=== PATIENT | female | born 1930 | race African-American/Black ===

== ENCOUNTER → 2016-07-24 | Outpatient (CLI) | payer OTHER ==
[~2016-07-24] MED LIST: ASCORBIC ACID PO; BAYER ASPIRIN325 M1 PO; BIDIL PO; MICRO-K10 MEQ PO; NORVASC10 MG PO; SPIRONOLACTONE50 MG PO; SYNTHROID75 MCG PO; ZESTRIL40 MG PO; [UNRECOGNIZED DRUG - OTHER]
[2016-07-24 18:06] LABS: HEMATOCRIT 30.2 % (35.0-45.0); HEMOGLOBIN 9.7 gm/dL (12.0-16.0); MEAN CELL VOLUME 88.3 FL (83-96); MEAN CORPUSCULAR HEMOGLOBIN 28.3 PG (28-34); MEAN PLATELET VOLUME 9.2 FL (6.5-11.5); RED BLOOD COUNT 3.42 X10e (3.90-5.30); RED CELL DISTRIBUTION WIDTH 14.6 % (11.0-15.5); WHITE BLOOD COUNT 7.1 X10e3 (4.0-10.5)
[2016-07-24 18:31] LABS: ALBUMIN SERUM 3.1 g/dL (3.5-5.0); BILIRUBIN,TOTAL 0.9 mg/dL (0.2-2.0); CALCIUM SERUM 7.8 mg/dL (8.4-10.2); CREATININE SERUM 1.6 mg/dL (0.6-1.4); POTASSIUM 4.4 mmol/L (3.5-5.1)
== END | disposition home or self-care (01) ==
LOC: CLAB 17:49 → CNNH 17:49
PROVIDERS: Internal Medicine Geriatric Medicine
DX: D64.9 Anemia, unspecified (principal); R11.2 Nausea with vomiting, unspecified
CPT/HCPCS: 80053; 82607; 83540; 85027